=== PATIENT | female | born 1965 | race African-American/Black ===

== ENCOUNTER 2018-04-18 10:18 | Outpatient (CLI) | payer OTHER ==
--- NOTE | 2018-04-18 11:22 | XRay Report ---
XRAY RIGHT KNEE 3 THREE VIEWS: 04/18/18 10:18:00 CLINICAL: Right knee pain. FINDINGS: Moderate diffuse osteopenia. Osteoarthritis of the medial joint with near-complete loss of the joint space and large medial osteophytes. Slight widening of the lateral joint space. Patellofemoral osteoarthritis with a large superior osteophyte. No fracture or dislocation. No joint effusion. 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
== END 2018-04-18 10:19 | disposition home or self-care (01) ==
LOC: SPVIMAG 10:18
PROVIDERS: ATTEND Family Medicine
DX: M17.11 Unilateral primary osteoarthritis, right knee (principal); M25.761 Osteophyte, right knee; M85.88 Other specified disorders of bone density and structure, other site

== ENCOUNTER 2019-07-24 13:03 | Outpatient (CLI) | payer OTHER ==
--- NOTE | 2019-07-24 14:43 | XRay Report ---
CERVICAL SPINE 5 VIEWS INDICATION: Cervicalgia. COMPARISON: No relevant prior imaging study available. FINDINGS: VERTEBRAE: No acute fracture is seen. There is exaggeration of the cervical lordosis. On the AP view, there is mild dextroscoliotic curvature of the cervical spine versus patient positioning. DISC SPACES: No significant abnormality. FACET JOINTS: No significant abnormality. SOFT TISSUES: No significant abnormality. ADDITIONAL FINDINGS: No additional significant findings. IMPRESSION: 1. No acute abnormality of the cervical spine. 2. Questionable cervical scoliosis as above. Signer Name: Vikas Coulter MD Signed: 07/24/2019 2:39 PM Workstation Name: [id number]
== END 2019-07-24 13:04 | disposition home or self-care (01) ==
LOC: SPVIMAG 13:03
PROVIDERS: ATTEND Physical Medicine & Rehabilitation Pain Medicine
DX: M54.2 Cervicalgia (principal)
CPT/HCPCS: 72050

== ENCOUNTER 2019-08-07 10:06 | Outpatient (CLI) | payer OTHER ==
--- NOTE | 2019-08-07 11:08 | XRay Report ---
XR foot 3+V LT INDICATION / CLINICAL INFORMATION: LEFT FOOT PAIN. COMPARISON: None available. FINDINGS: BONES/JOINT(S): No acute fracture or subluxation. No significant degenerative changes. Small enthesop hytes arising from the plantar aspect of the calcaneal tuberosity. No significant alignment abnormali ty. SOFT TISSUES: No significant abnormality. ADDITIONAL FINDINGS: None. Signer Name: Jerad Sequeira MD Signed: 08/07/2019 11:03 AM Workstation Name: [id number]
== END 2019-08-07 10:07 | disposition home or self-care (01) ==
LOC: SPVIMAG 10:06
PROVIDERS: ATTEND Physical Medicine & Rehabilitation Pain Medicine
DX: M79.672 Pain in left foot (principal)